=== PATIENT | female | born 1960 | race American Indian/Alaskan Native ===

== ENCOUNTER 2018-03-12 07:44 | Outpatient (CLI) | payer BC | END 2018-03-12 07:45 | disposition home or self-care (01) | LOC: VAS 07:44 | PROVIDERS: ATTEND Nurse Practitioner Family | DX: M79.661 Pain in right lower leg (principal); M79.89 Other specified soft tissue disorders ==

== ENCOUNTER 2018-03-26 07:08 | Outpatient (CLI) | payer BC ==
--- NOTE | 2018-03-26 13:45 | Mammography Report ---
BONE DEXA:03/26/18 07:08:00 CLINICAL: Postmenopausal. No comparison. TECHNIQUE: Two site bone DEXA performed on an Hologic scanner. FINDINGS: The average BMD of the right forearm is 0.616g/cm squared with a T-score of +1.0 and a Z-score of +2.1. The average BMD of the left forearm is 0.595g/cm squared with a T-score of +0.6 and a Z-score of +1.7. IMPRESSION: WHO classification: Normal with average fracture risk based on bilateral forearm measurements. RECOMMENDATION: Clinical correlation and routine screening. DEFINITIONS: BMD = Bone Mineral Density T-score = BMD related to mean peak bone mass of young adult (mean expressed in Standard Deviation) Z-score = Age matched BMD expressed in SD World Health Organization (WHO) Diagnostic Criteria Normal T-score > -1 SD Osteopenia T-score between -1 and -2.4 SD Osteoporosis T-score -2.5 SD or below NOTE: BMD is not the only risk factor for fracture. One should also consider factors such as the patient's age, risk of falling, previous osteoporotic fracture, family history of osteoporotic fractures, current smoker, and low body weight. Z-scores are not calculated if >80 years of age.
--- NOTE | 2018-03-26 15:59 | Mammography Report ---
BILATERAL DIGITAL SCREENING MAMMOGRAM with CAD: 03/26/18 07:08:00 CLINICAL: Routine screening. COMPARISON:07/19/16 and 10/06/10 FINDINGS: The breasts are heterogeneously dense, which may obscure small masses. A right outer asymmetry with architectural distortion requires additional imaging.No suspicious calcifications.The left breast is negative. IMPRESSION: Right outer asymmetry and architectural distortion requiring further workup. BI-RADS CATEGORY: 0 -- Additional Imaging Evaluation Required RECOMMENDATION: Recall for right mediolateral , exaggerated CC and spot magnification CC views and right breast ultrasound if needed. ACR BI-RADS MAMMOGRAPHIC CODES: 0 = Needs additional imaging evaluation; 1 = Negative; 2 = Benign; 3 = Probably benign; 4 = Suspicious; 5 = Malignant; 6 = Known biopsy-proven malignancy COMMENT: 1. Dense breast tissue, i.e., adenosis, fibrocystic changes, etc., may obscure an underlying neoplasm. 2. Approximately 10% of cancers are not detected with mammography. 3. A negative mammography report should not delay biopsy if a clinically suspicious mass is present. COMMENT: Patient follow-up letters are generated via our [employer] application.
== END 2018-03-26 07:09 | disposition home or self-care (01) ==
LOC: MAMMO 07:08
PROVIDERS: ATTEND Nurse Practitioner Family
DX: Z12.31 Encounter for screening mammogram for malignant neoplasm of breast (principal); F17.210 Nicotine dependence, cigarettes, uncomplicated; Z78.0 Asymptomatic menopausal state
CPT/HCPCS: 77067; 77080

== ENCOUNTER 2018-04-03 07:34 | Outpatient (CLI) | payer BC ==
--- NOTE | 2018-04-03 09:14 | Mammography Report ---
Spot compression magnification of asymmetric density outer right breast: Compared to 03/26/18. Findings: There is separation noted of the breast parenchyma in the region of asymmetric density. No mass is seen. No microcalcification. Impression: Benign findings. Annual followup with mammogram recommended. BI-RADS CATEGORY: 2 = Benign ACR BI-RADS MAMMOGRAPHIC CODES: 0 = Needs additional imaging evaluation; 1 = Negative; 2 = Benign; 3 = Probably benign; 4 = Suspicious; 5 = Malignant; 6 = Known biopsy-proven malignancy COMMENT: 1. Dense breast tissue, i.e., adenosis, fibrocystic changes, etc., may obscure an underlying neoplasm. 2. Approximately 10% of cancers are not detected with mammography. 3. A negative mammography report should not delay biopsy if a clinically suspicious mass is present. COMMENT: Patient follow-up letters are generated in [employer].
== END 2018-04-03 07:35 | disposition home or self-care (01) ==
LOC: MAMMO 07:34
PROVIDERS: ATTEND Nurse Practitioner Family
DX: N64.89 Other specified disorders of breast (principal)

== ENCOUNTER 2019-01-10 07:55 | Outpatient (CLI) | payer BC ==
--- NOTE | 2019-01-10 08:36 | XRay Report ---
BILATERAL KNEES STANDING, AP VIEW History: Bilateral primary osteoarthritis, knee pain. Findings: No comparison. Bone mineralization is within normal limits. No significant varus or valgus deformity. Within the right knee, there is moderate medial compartment joint space narrowing and marginal spurring. Mild tibial spine spurring. There is relative sparing of the lateral compartment. Within the left knee, there is mild medial compartment joint space narrowing and marginal spurring. Mild tibial spine spurring. There is relative sparing of the lateral compartment. Impression: Osteoarthritis as described, right knee greater than left knee.
== END 2019-01-10 07:56 | disposition home or self-care (01) ==
LOC: XRAY 07:55
PROVIDERS: ATTEND Orthopaedic Surgery
DX: M17.0 Bilateral primary osteoarthritis of knee (principal)
CPT/HCPCS: 73565

== ENCOUNTER 2019-03-20 07:27 | Outpatient (CLI) | payer BC ==
[2019-03-20 08:21] LABS: Alanine Aminotransferase 40 units/L (7-56); Albumin 3.6 g/dL (3.9-5); BUN/Creatinine Ratio 30; Blood Urea Nitrogen 15 mg/dL (7-17); Calcium 8.8 mg/dL (8.4-10.2); Hemolysis Index 56; LDL Cholesterol,Direct 114 mg/dL (50-130)
[2019-03-20 09:12] LABS: Chol/HDL Ratio 3.41 %; HDL Cholesterol 55 mg/dL (40-59)
== END 2019-03-20 07:28 | disposition home or self-care (01) ==
LOC: LAB 07:27
PROVIDERS: ATTEND Nurse Practitioner Family
DX: I10 Essential (primary) hypertension (principal)
CPT/HCPCS: 36415; 80053; 80061

== ENCOUNTER 2019-05-29 12:55 | Outpatient (CLI) | payer BC ==
--- NOTE | 2019-05-30 13:35 | Mammography Report ---
DIGITAL SCREENING MAMMOGRAM WITH CAD, 05/29/2019 INDICATION: Routine screening mammography. TECHNIQUE: Digital bilateral 2D mammography was obtained in the craniocaudal and mediolateral obliq ue projections. This examination was interpreted with the benefit of Computer-Aided Detection analysi s. COMPARISON: 03/26/2018. FINDINGS: Breast Density: There are scattered areas of fibroglandular density. There is no evidence of dominant mass, suspicious calcifications or architectural distortion in eithe r breast. IMPRESSION: BI-RADS Category 1: Negative. No mammographic evidence of malignancy. Recommend routine screening m ammography in one year. A "normal" or negative report should not discourage follow up or biopsy of a clinically significant f inding. A written summary of these findings will be mailed to the patient. The patient will be entered into a mammography reporting system which will generate a reminder letter for the patient's next appointmen t at the appropriate interval. The [employer] recommends yearly mammograms starting at age 40 and continuing as l jaleel as a woman is in good health. Breast MRI is recommended for women with an approximate 20-25% or greater lifetime risk of breast cancer, including women with a strong family history of breast or ova girish cancer or who have been treated for Hodgkin's disease. Signer Name: Alton Khan MD Signed: 05/30/2019 1:31 PM Workstation Name: [id number]
== END 2019-05-29 12:56 | disposition home or self-care (01) ==
LOC: MAMMO 12:55
PROVIDERS: ATTEND Internal Medicine
DX: Z12.31 Encounter for screening mammogram for malignant neoplasm of breast (principal)
CPT/HCPCS: 77067

== ENCOUNTER 2019-09-27 07:57 | Emergency (ER) | payer BC ==
[2019-09-27 08:16] VITALS: BP 155/92
--- NOTE | 2019-09-27 08:34 | Emergency Department Report ---
ED Back Pain/Injury HPI - General Chief Complaint: Medical Clearance Stated Complaint: RT SIDE PAIN EXTREME Time Seen by Provider: 09/27/19 08:24 Source: patient Limitations: No Limitations - History of Present Illness Initial Comments: Mrs. Peacock is a 59 yo with hx of HTN and "arthritis all over my body". She presents with 3 days of moderately severe right flank pain radiating to buttock and thigh. Hurts to twist, bend. Has a hard time putting on clothes. 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 Has been followed by Dr. Abdullahi orthopedic surgeon for arthritis. Has tried physical therapy in the past. Has most had right leg pain. Right back pain is new. No trauma. No fever. No weight loss. Mrs. Peacock tried to return to work today. She could not endure her shift due to the pain. 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) Associated Symptoms: denies other symptoms - Related Data Previous Rx's Medication Instructions Recorded Last Taken Type Cyclobenzaprine [Flexeril] 10 mg PO QHS 14 Days #14 tablet 09/27/19 Unknown Rx Allergies Allergy/AdvReac Type Severity Reaction Status Date / Time No Known Allergies Allergy Unverified 03/12/18 07:44 ED Review of Systems ROS: Stated complaint: RT SIDE PAIN EXTREME Other details as noted in HPI Comment: All other systems reviewed and negative Constitutional: denies: fever, malaise Respiratory: denies: cough Cardiovascular: denies: chest pain Gastrointestinal: denies: abdominal pain, nausea, vomiting ED Past Medical Hx - Past Medical History Previous Medical History?: Yes Hx Hypertension: Yes Hx Arthritis: Yes - Surgical History Past Surgical History?: No - Social History Smoking Status: Never Smoker - Medications Home Medications: Home Medications Medication Instructions Recorded Confirmed Last Taken Type Cyclobenzaprine [Flexeril] 10 mg PO QHS 14 Days #14 tablet 09/27/19 Unknown Rx ED Physical Exam - General Limitations: No Limitations General appearance: alert, in no apparent distress, other (able to transfer with obvious pain) - Head Head exam: Present: atraumatic, normocephalic - Eye Eye exam: Present: normal appearance - ENT ENT exam: Present: mucous membranes moist - Neck Neck exam: Present: normal inspection, full ROM - Respiratory Respiratory exam: Present: normal lung sounds bilaterally. Absent: respiratory distress, wheezes, rales - Cardiovascular Cardiovascular Exam: Present: regular rate, normal rhythm, normal heart sounds. Absent: systolic murmur, diastolic murmur, rubs, gallop - GI/Abdominal GI/Abdominal exam: Present: soft, normal bowel sounds. Absent: distended, tenderness, guarding, rebound - Extremities Exam Extremities exam: Present: normal inspection - Back Exam Back exam: Present: muscle spasm. Absent: paraspinal tenderness, vertebral tenderness, rash noted - Neurological Exam Neurological exam: Present: alert, oriented X3 - Psychiatric Psychiatric exam: Present: normal affect, normal mood - Skin Skin exam: Present: warm, dry, intact, normal color. Absent: rash ED Course Vital Signs 09/27/19 08:03 Temperature 98.5 F Pulse Rate 96 H Respiratory 18 Rate Blood Pressure 155/92 [Left] O2 Sat by Pulse 93 Oximetry ED Medical Decision Making - Medical Decision Making Mrs. Peacock presents with right lumbar sprain vs lumbar radiculopathy/back pain: given ketorolac IM in the ED Prescribed nightly flexeril. She has medication prescribed to her by Dr. Abdullahi. Strongly recommended returning to physical therapy She is neuorologically intact. No red flags such as trauma, fever, weight loss, advanced age. Suspect significant lumbar DDD with considering her occupation and age Critical care attestation.: If time is entered above; I have spent that time in minutes in the direct care of this critically ill patient, excluding procedure time. ED Disposition Clinical Impression: Lumbar strain Disposition: DC-01 TO HOME OR SELFCARE Is pt being admited?: No Does the pt Need Aspirin: No Condition: Stable Instructions: Acute Low Back Pain (ED) Prescriptions: Cyclobenzaprine [Flexeril] 10 mg PO QHS 14 Days #14 tablet Referrals: AGUSTIN ABDULLAHI MD [Staff Physician] - 2-3 Days Forms: Work/School Release Form(ED)
[2019-09-27] MEDS ORDERED: KETOROLAC 30 MG/1 ML INJ IM ONE (08:39)
== END 2019-09-27 08:58 | disposition home or self-care (01) ==
LOC: ED 07:57
DX: S39.012A Strain of muscle, fascia and tendon of lower back, initial encounter (principal); I10 Essential (primary) hypertension; M19.90 Unspecified osteoarthritis, unspecified site; X50.9XXA Other and unspecified overexertion or strenuous movements or postures, initial encounter; Y93.89 Activity, other specified; Y92.69 Other specified industrial and construction area as the place of occurrence of the external cause; Y99.8 Other external cause status
CPT/HCPCS: 96372; 99281; J1885

== ENCOUNTER 2019-11-20 08:54 | Outpatient (CLI) | payer BC ==
[2019-11-20 09:52] LABS: Alanine Aminotransferase 21 units/L (7-56); Albumin 4.1 g/dL (3.9-5); BUN/Creatinine Ratio 21; Blood Urea Nitrogen 17 mg/dL (7-17); Calcium 9.5 mg/dL (8.4-10.2); Hemolysis Index 6; LDL Cholesterol,Direct 132 mg/dL (50-130)
[2019-11-20 10:37] LABS: Chol/HDL Ratio 4.17 %; HDL Cholesterol 51 mg/dL (40-59)
[2019-11-24 12:09] LABS: Vitamin D, 25-OH, D2 <4 ng/mL
== END 2019-11-20 08:55 | disposition home or self-care (01) ==
LOC: VAS 08:54
PROVIDERS: ATTEND Orthopaedic Surgery
DX: Z00.00 Encounter for general adult medical examination without abnormal findings (principal); R73.09 Other abnormal glucose; Z13.220 Encounter for screening for lipoid disorders; Z13.29 Encounter for screening for other suspected endocrine disorder; Z13.21 Encounter for screening for nutritional disorder; M13.0 Polyarthritis, unspecified
CPT/HCPCS: 36415; 80053; 80061; 82306; 82607; 83036; 84443; 84550; 85652; 86038; 86431

== ENCOUNTER 2019-11-28 08:01 | Outpatient (CLI) | payer BC ==
--- NOTE | 2019-11-28 14:23 | Vascular Lab Report ---
DUPLEX DOPPLER LOWER EXTREMITY ARTERIAL, BILATERAL INDICATION: Bilateral lower extremity pain for several years when walking. TECHNIQUE: Arterial duplex examination of both lower extremities performed using B-mode, color flow and spectral Doppler assessment. FINDINGS: RIGHT: Common Femoral Artery: PSV 155 cm/sec. Triphasic waveform. Proximal SFA: PSV 131 cm/sec. Triphasic waveform. Mid SFA: PSV 102 cm/sec. Triphasic waveform. Distal SFA: PSV 102 cm/sec. Triphasic waveform. Popliteal artery: PSV 64 cm/sec. Biphasic waveform. Posterior tibial artery: PSV 102 cm/sec. Biphasic waveform. Anterior tibial artery: PSV 95 cm/s. Triphasic waveform. Dorsalis Pedis Artery: PSV 109 cm/sec. Biphasic waveform. LEFT: Common Femoral Artery: PSV 162 cm/sec. Triphasic waveform. Proximal SFA: PSV 122 cm/sec. Triphasic waveform. Mid SFA: PSV 95 cm/sec. Triphasic waveform. Distal SFA: PSV 68 cm/sec. Biphasic waveform. Popliteal artery: PSV 67 cm/sec. Biphasic waveform. Posterior tibial artery: PSV 88 cm/sec. Biphasic waveform. Anterior tibial artery: PSV 106 cm/s. Triphasic waveform. Dorsalis Pedis Artery: PSV 87 cm/sec. Triphasic waveform. IMPRESSION: Bilateral lower extremity arterial structures appear patent with multiphasic waveforms. Doppler Waveform: * Triphasic is normal. * Biphasic is abnormal if clear transition from triphasic signal along vascular tree. * Monophasic is abnormal. Signer Name: Clifford Eldridge Jr, MD Signed: 11/28/2019 2:18 PM Workstation Name: [id number]
== END 2019-11-28 08:02 | disposition home or self-care (01) ==
LOC: VAS 08:01
PROVIDERS: ATTEND Internal Medicine
DX: M79.606 Pain in leg, unspecified (principal)
CPT/HCPCS: 93925

== ENCOUNTER 2019-12-12 07:59 | Outpatient (CLI) | payer BC ==
[2019-12-12 08:23] LABS: Basophils # (Auto) 0.1 K/mm3 (0.0-0.1); Basophils % (Auto) 1.3 % (0.0-1.8); Eosinophils # (Auto) 0.2 K/mm3 (0.0-0.4); Eosinophils % (Auto) 4.3 % (0.0-4.3); Hematocrit 39.7 % (30.3-42.9); Hemoglobin 12.9 gm/dl (10.1-14.3); Lymphocytes # (Auto) 1.4 K/mm3 (1.2-5.4); Lymphocytes % (Auto) 29.3 % (13.4-35.0); Mean Corpuscular HGB Conc 32 % (30-34); Mean Corpuscular Volume 86 fl (79-97); Monocytes # (Auto) 0.4 K/mm3 (0.0-0.8); Monocytes % (Auto) 7.9 % (0.0-7.3); Platelet Count 191 K/mm3 (140-440); Red Blood Count 4.63 M/mm3 (3.65-5.03); Red Cell Distribution Width 16.9 % (13.2-15.2)
== END 2019-12-12 08:00 | disposition home or self-care (01) ==
LOC: LAB 07:59
PROVIDERS: ATTEND Internal Medicine
DX: Z00.00 Encounter for general adult medical examination without abnormal findings (principal)
CPT/HCPCS: 36415; 85025

== ENCOUNTER 2020-03-10 08:25 | Outpatient (CLI) | payer BC ==
[2020-03-10 09:38] LABS: Uric Acid 9.9 mg/dL (3.5-7.6)
[2020-03-10 09:58] LABS: Chol/HDL Ratio 3.55 %
== END 2020-03-10 08:26 | disposition home or self-care (01) ==
LOC: LAB 08:25
PROVIDERS: ATTEND Internal Medicine
DX: Z13.220 Encounter for screening for lipoid disorders (principal); M10.9 Gout, unspecified
CPT/HCPCS: 36415; 80061; 84550

== ENCOUNTER 2020-05-18 09:02 | Outpatient (CLI) | payer BC | END 2020-05-18 09:03 | disposition home or self-care (01) | LOC: LAB 09:02 | PROVIDERS: ATTEND Internal Medicine | DX: M10.9 Gout, unspecified (principal) | CPT/HCPCS: 36415; 84550 ==

== ENCOUNTER 2020-07-20 10:58 | Outpatient (CLI) | payer BC ==
--- NOTE | 2020-07-21 08:41 | Mammography Report ---
DIGITAL SCREENING MAMMOGRAM WITH CAD, 07/20/2020 INDICATION: Routine screening mammography. TECHNIQUE: Digital bilateral 2D mammography was obtained in the craniocaudal and mediolateral obliq ue projections. This examination was interpreted with the benefit of Computer-Aided Detection analysi s. COMPARISON: 05/29/2019, 04/03/2018, 06/19/2016 FINDINGS: Breast Density: There are scattered areas of fibroglandular density. There is no evidence of dominant mass, suspicious calcifications or architectural distortion in eithe r breast. IMPRESSION: Follow up recommendation: Routine yearly BI-RADS Category 1: Negative. A "normal" or negative report should not discourage follow up or biopsy of a clinically significant f inding. A written summary of these findings will be mailed to the patient. The patient will be entered into a mammography reporting system which will generate a reminder letter for the patient's next appointmen t at the appropriate interval. The [employer] recommends yearly mammograms starting at age 40 and continuing as l jaleel as a woman is in good health. Breast MRI is recommended for women with an approximate 20-25% or greater lifetime risk of breast cancer, including women with a strong family history of breast or ova girish cancer or who have been treated for Hodgkin's disease. Signer Name: Alison Amaya MD Signed: 07/21/2020 8:36 AM Workstation Name: [id number]
== END 2020-07-20 10:59 | disposition home or self-care (01) ==
LOC: MAMMO 10:58
PROVIDERS: ATTEND Internal Medicine
DX: Z12.31 Encounter for screening mammogram for malignant neoplasm of breast (principal)
CPT/HCPCS: 77067

== ENCOUNTER 2020-09-29 09:01 | Outpatient (CLI) | payer BC ==
[2020-09-29 11:05] LABS: Chol/HDL Ratio 3.49 %; Uric Acid 5.5 mg/dL (3.5-7.6)
== END 2020-09-29 09:02 | disposition home or self-care (01) ==
LOC: LAB 09:01
PROVIDERS: ATTEND Internal Medicine
DX: E78.5 Hyperlipidemia, unspecified (principal); M10.9 Gout, unspecified; R73.9 Hyperglycemia, unspecified
CPT/HCPCS: 36415; 80061; 83036; 84550

== ENCOUNTER 2020-11-17 11:16 | Outpatient (CLI) | payer BC ==
--- NOTE | 2020-11-17 15:03 | XRay Report ---
CHEST 2 VIEWS INDICATION / CLINICAL INFORMATION: SOB. COMPARISON: None available. FINDINGS: SUPPORT DEVICES: None. HEART / MEDIASTINUM: No significant abnormality. LUNGS / PLEURA: No significant pulmonary or pleural abnormality. No pneumothorax. ADDITIONAL FINDINGS: No significant additional findings. IMPRESSION: No significant abnormality Signer Name: Jorge Alberto Field MD FACR Signed: 11/17/2020 2:58 PM Workstation Name: [id number]
== END 2020-11-17 11:17 | disposition home or self-care (01) ==
LOC: XRAY 11:16
PROVIDERS: ATTEND Internal Medicine
DX: R06.02 Shortness of breath (principal)
CPT/HCPCS: 71046

== ENCOUNTER 2020-12-08 10:56 | Outpatient (CLI) | payer BC ==
--- NOTE | 2020-12-08 13:07 | Fluoroscopy Report ---
Single contrast upper GI HISTORY: FUNCTIONAL DYSPEPSIA. Preoperative planning Technique: Single contrast barium technique utilized to evaluate the esophagus, stomach, and duodena l C-loop. Findings: No mucosal irregularity, mass, mass effect, or critical stenosis. There were no abnormal tertiary contractions as seen with dysmotility. No gastroesophageal reflux. Normal anatomy. Impression: Unremarkable exam. Fluoroscopic time: 0.4 minutes Number of fluoroscopic images: 10 Signer Name: Giuliano Garcia MD Signed: 12/08/2020 1:03 PM Workstation Name: [id number]
== END 2020-12-08 10:57 | disposition home or self-care (01) ==
LOC: FLUORO 10:56
PROVIDERS: ATTEND Surgery
DX: K30 Functional dyspepsia (principal)
CPT/HCPCS: 74246

== ENCOUNTER 2021-01-02 11:00 | Outpatient (CLI) | payer BC | END 2021-01-03 11:00 | disposition home or self-care (01) | LOC: SLR 01-03 11:00 | PROVIDERS: ATTEND Surgery | DX: G47.30 Sleep apnea, unspecified (principal) | CPT/HCPCS: 95810 ==

== ENCOUNTER 2021-01-20 11:00 | Outpatient (CLI) | payer BC | END 2021-01-20 11:01 | disposition home or self-care (01) | LOC: SLR 11:00 | PROVIDERS: ATTEND Surgery | DX: G47.33 Obstructive sleep apnea (adult) (pediatric) (principal) | CPT/HCPCS: 95811 ==

== ENCOUNTER 2021-02-15 09:14 | Outpatient (CLI) | payer BC ==
[2021-02-15 10:40] LABS: Chol/HDL Ratio 3.36 %; Uric Acid 7.4 mg/dL (3.5-7.6)
== END 2021-02-15 09:15 | disposition home or self-care (01) ==
LOC: LAB 09:14
PROVIDERS: ATTEND Internal Medicine
DX: R73.03 Prediabetes (principal); E78.5 Hyperlipidemia, unspecified; M10.9 Gout, unspecified
CPT/HCPCS: 36415; 80061; 83036; 84550

== ENCOUNTER 2021-03-02 13:02 | Outpatient (CLI) | payer BC ==
[2021-03-02] MEDS ORDERED: ALBUTEROL 2.5 MG/3 ML NEBU IH ONE (15:30)
[2021-03-02] MEDS ORDERED: ALBUTEROL 2.5 MG/3 ML NEBU IH SCH (16:00)
--- NOTE | 2021-03-24 01:04 | Pulmonary Function Test ---
DATE OF VISIT: 03/02/2021 PULMONARY FUNCTION TEST SPIROMETRY: FVC 2.50, which is 85% of predicted and FEV1 is 2.10, which is 91% of the predicted. The FEV1/FVC ratio is 84 and the FEF 25-75% is 2.62 liters, which is 116% of the predicted. Post bronchodilators, there is a significant improvement in FVC. IMPRESSION: Normal spirometry. TID: [id number] RECEIPT: [id number] [facility] cc: Ellis Rendon MD
== END 2021-03-02 13:03 | disposition home or self-care (01) ==
LOC: PF 13:02
PROVIDERS: ATTEND Surgery
DX: R06.02 Shortness of breath (principal); E66.01 Morbid (severe) obesity due to excess calories
CPT/HCPCS: 94060; 94640

== ENCOUNTER 2021-05-31 05:58 | Day surgery (SDC) | payer BC ==
[~2021-05-31 05:58] MED LIST: SIMETHICONE 40 MG/0.6 ML ORAL DROP 30ML PO ONE
[2021-05-31] MEDS ORDERED: SODIUM CHLORIDE 0.9% 1000 ML 1,000 ML IV SCH (07:00)
[2021-05-31] MEDS ORDERED: MIDAZOLAM 2 MG/2 ML INJ ONE (07:41)
[2021-05-31] MEDS ORDERED: propofoL 200 MG/20 ML VIAL IV ONE (07:42)
[2021-05-31] MEDS ORDERED: KETAMINE/STERILE WATER 50 MG/ML SYRINGE ONE (07:42)
--- NOTE | 2021-05-31 08:26 | Anesthesia Day of Surgery ---
Anesthesia Day of Surgery - Day of Surgery Patient Examined: Yes Patient H&P Reviewed: Yes Patient is NPO: Yes
--- NOTE | 2021-05-31 08:26 | Anesthesia Consultation ---
Anesthesia Consult and Med Hx Date of service: 05/31/21 - Airway Anesthetic Teeth Evaluation: Dentures (upper) ROM Head & Neck: Adequate Mental/Hyoid Distance: Adequate Mallampati Class: Class III Intubation Access Assessment: Possibly Difficult - Pre-Operative Health Status ASA Pre-Surgery Classification: ASA3 Proposed Anesthetic Plan: MAC - Pulmonary Hx Smoking: No Hx Asthma: Yes Hx Respiratory Symptoms: No Hx Sleep Apnea: Yes - Cardiovascular System Hx Hypertension: Yes Hx Heart Attack/AMI: No - Central Nervous System CVA: No - Endocrine Hx Renal Disease: No Hx Liver Disease: No Hx Insulin Dependent Diabetes: No Hx Non-Insulin Dependent Diabetes: No Hx Thyroid Disease: No - Other Systems Hx Obesity: Yes (BMI 48)
--- NOTE | 2021-05-31 08:28 | Discharge Summary ---
Providers - Providers Date of Admission: 05/31/2021 Date of discharge: 05/31/21 Attending physician: CONRADO SPRINGER MD Primary care physician: JORGE WHITTAKER Hospitalization Reason for admission: pre-op planning egd Condition: Good Procedures: egd with bx Hospital course: Pt presented for a pre-op EGD as part of planning for up coming bariatric surgery. Procedure was uneventful and pt recovered well and was discharged to home. Disposition: 01 HOME / SELF CARE / HOMELESS Final Discharge Diagnosis (Prints w/discharge instructions): morbid obesity, gastritis, gerd Core Measure Documentation - Palliative Care Palliative Care/ Comfort Measures: Not Applicable - Core Measures Any of the following diagnoses?: none Exam - Physical Exam Narrative exam: unchanged from pre-op Plan Activity: no restrictions Diet: low carbohydrate Follow up with: JORGE WHITTAKER MD [Primary Care Provider] - 7 Days
--- NOTE | 2021-05-31 08:30 | Operative Report ---
Operative Report Operative Report: DATE: 05/31/2021 SURGERY: Upper endoscopy. SURGEON: Faith Lemus M.D. PROCEDURE: EGD with biopsy PRE OP DX: morbid obesity, GERD POST OP DX: morbid obesity, GERD, gastritis, duodenitis TYPE OF ANESTHESIA: MAC. ESTIMATED BLOOD LOSS: None. COMPLICATIONS: None. SPECIMENS REMOVED: antral biopsy FINDINGS: 1. Small hiatal hernia. 2. gastritis, duodenitis INDICATIONS:INDICATION FOR PROCEDURE: Patient is a 61-year-old female with a long history of morbid obesity. She is planned to have a weight loss procedure and is here for preoperative planning EGD. PROCEDURE DETAILS: After consent was reviewed, patient was taken back to the operating room where patient was placed in the left lateral decubitus position and a bite block was placed in the mouth. After a time-out was called, MAC anesthesia was initiated. I then passed the endoscope into her oropharynx, into her esophagus, visualized the entire esophagus, which was all within normal limits. Z-line was noted to about 40cm from incisors. I then visualized the stomach and the first portion of the duodenum and there were no abnormalities I could clearly visualize except for antral gastritis and duodenitis. A cold forceps biopsy of the antrum was taken and will be sent to pathology to evaluate for H.pylori. I then retroflexed the scope in the stomach and visualized the hiatus and I could see a small hiatal hernia. I then desufflated the stomach and removed the endoscope. Patient tolerated procedure well and was transferred to recovery room in good and stable condition.
[2021-05-31] MEDS: hydrALAZINE 20 MG/1 ML INJ IV PRN ×2 (08:54→09:37)
[2021-05-31] MEDS ORDERED: LIDOCAINE MPF (2%) 20 MG/1 ML VIAL 5 ML ONE (09:00)
--- NOTE | 2021-05-31 09:19 | Post Anesthesia Evaluation ---
- Post Anesthesia Evaluation Patient Participated: Yes Airway Patent: Yes Stable Respiratory Function: Yes Nausea/Vomiting: No Temp > 96.8F: Yes Pain Manageable: Yes Adequeate Hydration: Yes Anesthesia Complications: No
[2021-05-31 12:27] VITALS: BP 147/89
== END 2021-05-31 10:15 | disposition home or self-care (01) ==
LOC: GIO 05:58
PROVIDERS: ATTEND Surgery
DX: E66.01 Morbid (severe) obesity due to excess calories (principal); K21.9 Gastro-esophageal reflux disease without esophagitis; K44.9 Diaphragmatic hernia without obstruction or gangrene; K29.80 Duodenitis without bleeding; K31.89 Other diseases of stomach and duodenum; K29.50 Unspecified chronic gastritis without bleeding; I10 Essential (primary) hypertension; J45.909 Unspecified asthma, uncomplicated; G47.30 Sleep apnea, unspecified; M19.90 Unspecified osteoarthritis, unspecified site; Z79.899 Other long term (current) drug therapy; Z98.890 Other specified postprocedural states; Z68.42 Body mass index [BMI] 45.0-49.9, adult
CPT/HCPCS: 43239; 88305; 88342; J0360; J2250; J2704; J3490; J7030

== ENCOUNTER 2021-07-18 08:30 | Outpatient (CLI) | payer BC ==
--- NOTE | 2021-07-20 10:09 | Electrocardiograph Report ---
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
== END 2021-07-18 08:31 | disposition home or self-care (01) ==
LOC: CARD 08:30
PROVIDERS: ATTEND Surgery
DX: E66.01 Morbid (severe) obesity due to excess calories (principal)
CPT/HCPCS: 93005

== ENCOUNTER 2021-07-20 08:37 | Outpatient (CLI) | payer BC ==
[2021-07-20 09:29] LABS: Chol/HDL Ratio 3.67 %; Uric Acid 8.2 mg/dL (3.5-7.6)
== END 2021-07-20 08:38 | disposition home or self-care (01) ==
LOC: LAB 08:37
PROVIDERS: ATTEND Internal Medicine
DX: E78.5 Hyperlipidemia, unspecified (principal); M10.9 Gout, unspecified; R73.03 Prediabetes
CPT/HCPCS: 36415; 80061; 83036; 84550

== ENCOUNTER 2021-07-29 08:26 | Outpatient (CLI) | payer BC ==
--- NOTE | 2021-07-30 09:37 | Treadmill Report ---
DATE OF SERVICE: 07/29/2021 TREADMILL STRESS TEST ORDERING PHYSICIAN: Dr. Lemus. INDICATION: Preop for bariatric surgery. FINDINGS: Baseline heart rate was 76. Baseline blood pressure 150/92. Baseline EKG, sinus rhythm with RSR pattern in V1. The patient exercised for 6 minutes on Collins protocol, achieved a max heart rate of 132, which is 84% of max heart rate. Max blood pressure was 207/96. There were no EKG changes or arrhythmias suggestive of ischemia. SUMMARY: 1. Negative treadmill EKG, achieved 84% of max heart rate, sensitive, may be mildly compromised. 2. Mildly exaggerated blood pressure response to activity. 3. Fair exercise capacity. 4. No EKG changes or arrhythmias suggestive of ischemia. TID: [id number] RECEIPT: [id number] MIK/MEGAN
--- NOTE | 2021-08-04 11:51 | Treadmill Report ---
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
== END 2021-07-29 08:27 | disposition home or self-care (01) ==
LOC: CARD 08:26
PROVIDERS: ATTEND Surgery
DX: E66.01 Morbid (severe) obesity due to excess calories (principal)
CPT/HCPCS: 93017

== ENCOUNTER 2021-08-04 07:57 | Outpatient (CLI) | payer BC ==
[2021-08-04 08:21] LABS: Basophils # (Auto) 0.1 K/mm3 (0.0-0.1); Eosinophils # (Auto) 0.2 K/mm3 (0.0-0.4); Hematocrit 41.4 % (30.3-42.9); Hemoglobin 13.2 gm/dl (10.1-14.3); Lymphocytes # (Auto) 1.5 K/mm3 (1.2-5.4); Mean Corpuscular HGB Conc 32 % (30-34); Mean Corpuscular Volume 86 fl (79-97); Monocytes # (Auto) 0.4 K/mm3 (0.0-0.8); Monocytes % (Auto) 8.8 % (0.0-7.3); Platelet Count 174 K/mm3 (140-440); Red Blood Count 4.83 M/mm3 (3.65-5.03); Red Cell Distribution Width 17.7 % (13.2-15.2)
[2021-08-04 08:45] LABS: Alanine Aminotransferase 21 units/L (7-56); Albumin 3.8 g/dL (3.9-5); Blood Urea Nitrogen 15 mg/dL (7-17); Hemolysis Index 9
[2021-08-04 08:48] LABS: BUN/Creatinine Ratio 25
[2021-08-08 12:44] LABS: Vitamin D, 25-OH, D2 <4 ng/mL
== END 2021-08-04 07:58 | disposition home or self-care (01) ==
LOC: LAB 07:57
PROVIDERS: ATTEND Internal Medicine
DX: Z13.29 Encounter for screening for other suspected endocrine disorder (principal); Z00.00 Encounter for general adult medical examination without abnormal findings; E11.9 Type 2 diabetes mellitus without complications; E78.5 Hyperlipidemia, unspecified; E55.9 Vitamin D deficiency, unspecified
CPT/HCPCS: 36415; 80053; 82306; 84443; 85025

== ENCOUNTER 2021-08-17 07:56 | Outpatient (CLI) | payer BC ==
--- NOTE | 2021-08-17 14:51 | Mammography Report ---
DIGITAL SCREENING MAMMOGRAM WITH CAD, 08/17/2021 CLINICAL INFORMATION / INDICATION: Routine screening mammography. TECHNIQUE: Digital bilateral 2D mammography was obtained in the craniocaudal and mediolateral obliqu e projections. This examination was interpreted with the benefit of Computer-Aided Detection analysis . COMPARISON: 05/29/2019 FINDINGS: Breast Density: There are scattered areas of fibroglandular density. No dominant mass, suspicious calcifications, or architectural distortion in either breast. No interval change. IMPRESSION: No mammographic evidence of malignancy. Follow up recommendation: Routine yearly BI-RADS Category 1: Negative. A "normal" or negative report should not discourage follow up or biopsy of a clinically significant f inding. A written summary of these findings will be mailed to the patient. The patient will be entered into a mammography reporting system which will generate a reminder letter for the patient's next appointmen t at the appropriate interval. The [employer] recommends yearly mammograms starting at age 40 and continuing as l jaleel as a woman is in good health. Breast MRI is recommended for women with an approximate 20-25% or greater lifetime risk of breast cancer, including women with a strong family history of breast or ova girish cancer or who have been treated for Hodgkin's disease. Signer Name: Martha Jeffery MD Signed: 08/17/2021 2:47 PM Workstation Name: [id number]
== END 2021-08-17 07:57 | disposition home or self-care (01) ==
LOC: MAMMO 07:56
PROVIDERS: ATTEND Internal Medicine
DX: Z12.31 Encounter for screening mammogram for malignant neoplasm of breast (principal)
CPT/HCPCS: 77067

== ENCOUNTER 2021-11-15 08:29 | Outpatient (CLI) | payer BC ==
[2021-11-15 09:18] LABS: Basophils % (Auto) 0.7 % (0.0-1.8); Eosinophils # (Auto) 0.1 K/mm3 (0.0-0.4); Eosinophils % (Auto) 2.1 % (0.0-4.3); Hematocrit 42.9 % (30.3-42.9); Hemoglobin 13.6 gm/dl (10.1-14.3); Lymphocytes # (Auto) 1.2 K/mm3 (1.2-5.4); Lymphocytes % (Auto) 22.1 % (13.4-35.0); Mean Corpuscular HGB Conc 32 % (30-34); Mean Corpuscular Volume 86 fl (79-97); Monocytes # (Auto) 0.4 K/mm3 (0.0-0.8); Monocytes % (Auto) 7.1 % (0.0-7.3); Platelet Count 188 K/mm3 (140-440); Red Blood Count 4.99 M/mm3 (3.65-5.03); Red Cell Distribution Width 19.2 % (13.2-15.2)
[2021-11-15 09:22] LABS: % Iron Saturation 36.76 %; Alanine Aminotransferase 28 units/L (7-56); Blood Urea Nitrogen 12 mg/dL (7-17); Calcium 9.5 mg/dL (8.4-10.2); Chol/HDL Ratio 2.91 %; HDL Cholesterol 59 mg/dL (40-59); Hemolysis Index 6; Iron 93 ug/dL (37-170); LDL Cholesterol,Direct 97 mg/dL (50-130); Total Iron Binding Capacity 253 mcg/dL (250-450)
[2021-11-15 09:38] LABS: BUN/Creatinine Ratio 17
== END 2021-11-15 08:30 | disposition home or self-care (01) ==
LOC: LAB 08:29
PROVIDERS: ATTEND Surgery
DX: Z13.21 Encounter for screening for nutritional disorder (principal); Z13.29 Encounter for screening for other suspected endocrine disorder; K30 Functional dyspepsia; K90.9 Intestinal malabsorption, unspecified; E55.9 Vitamin D deficiency, unspecified; E11.9 Type 2 diabetes mellitus without complications; E66.01 Morbid (severe) obesity due to excess calories; Z98.84 Bariatric surgery status
CPT/HCPCS: 36415; 80053; 80061; 82306; 82607; 82728; 83036; 83550; 83970; 84425; 84443; 85025

== ENCOUNTER 2022-02-28 08:00 | Outpatient (CLI) | payer BC ==
[2022-03-03 12:15] LABS: Vitamin D, 25-OH, D2 <4 ng/mL
== END 2022-02-28 08:01 | disposition home or self-care (01) ==
LOC: LAB 08:00
PROVIDERS: ATTEND Internal Medicine
DX: Z01.812 Encounter for preprocedural laboratory examination (principal); E66.01 Morbid (severe) obesity due to excess calories; K30 Functional dyspepsia; E55.9 Vitamin D deficiency, unspecified
CPT/HCPCS: 36415; 82306; 84425

== ENCOUNTER 2022-05-31 08:03 | Outpatient (CLI) | payer BC ==
[2022-05-31 09:06] LABS: Eosinophils % (Auto) 2.2 % (0.0-4.3); Hematocrit 41.8 % (30.3-42.9); Hemoglobin 13.3 gm/dl (10.1-14.3); Lymphocytes % (Auto) 29.4 % (13.4-35.0); Mean Corpuscular HGB Conc 32 % (30-34); Mean Corpuscular Volume 92 fl (79-97); Mean Platelet Volume 10.7 fl (6-12); Monocytes % (Auto) 7.5 % (0.0-7.3); Platelet Count 170 K/mm3 (140-440); Red Blood Count 4.55 M/mm3 (3.65-5.03); Red Cell Distribution Width 16.3 % (13.2-15.2)
[2022-05-31 09:07] LABS: Basophils # (Auto) 0.1 K/mm3 (0.0-0.1); Basophils % (Auto) 1.2 % (0.0-1.8); Eosinophils # (Auto) 0.1 K/mm3 (0.0-0.4); Lymphocytes # (Auto) 1.3 K/mm3 (1.2-5.4); Monocytes # (Auto) 0.3 K/mm3 (0.0-0.8)
[2022-05-31 09:19] LABS: Creatinine,Urine 152.6 mg/dL (0.1-20.0); Microalbumin/Creatinine Ratio 7.8 ug/mg
[2022-05-31 09:48] LABS: Alanine Aminotransferase 24 units/L (7-56); BUN/Creatinine Ratio 23; Blood Urea Nitrogen 14 mg/dL (7-17); Calcium 9.3 mg/dL (8.4-10.2)
[2022-05-31 09:49] LABS: Chol/HDL Ratio 2.84 %; HDL Cholesterol 71 mg/dL (40-59); Hemolysis Index 1; LDL Cholesterol,Direct 107 mg/dL (50-130)
[2022-06-03 15:40] LABS: Vitamin D, 25-OH, D2 <4 ng/mL
== END 2022-05-31 08:04 | disposition home or self-care (01) ==
LOC: LAB 08:03
PROVIDERS: ATTEND Internal Medicine
DX: Z00.00 Encounter for general adult medical examination without abnormal findings (principal); E11.9 Type 2 diabetes mellitus without complications; I10 Essential (primary) hypertension; E78.5 Hyperlipidemia, unspecified; R53.83 Other fatigue; E55.9 Vitamin D deficiency, unspecified
CPT/HCPCS: 36415; 80053; 80061; 82043; 82306; 83036; 85025

== ENCOUNTER 2022-07-10 09:03 | Outpatient (CLI) | payer BC ==
--- NOTE | 2022-07-10 10:19 | XRay Report ---
. RIGHT FOOT 3 VIEW(S) INDICATION / CLINICAL INFORMATION: M25.571 PAIN IN RIGHT FOOT COMPARISON: None available. FINDINGS: BONES / JOINT(S): No acute fracture or subluxation. No significant arthritis. SOFT TISSUES: No significant abnormality. ADDITIONAL FINDINGS: Prominent plantar calcaneal enthesophyte. IMPRESSION: 1. No acute findings. 2. Plantar calcaneal enthesopathy Signer Name: Bob Malik MD Signed: 07/10/2022 10:15 AM Workstation Name: [email or web address]
--- NOTE | 2022-07-10 10:19 | XRay Report ---
. RIGHT ANKLE 2 VIEW(S) INDICATION / CLINICAL INFORMATION: M25.571 PAIN IN RIGHT ANKLE COMPARISON: None available. FINDINGS: BONES / JOINT(S): No acute fracture or subluxation. Mild degenerative arthrosis tibiotalar joint. Mil d polyarticular arthrosis right midfoot. Prominent plantar calcaneal enthesophyte. SOFT TISSUES: Moderate medial and lateral ankle soft tissue swelling. ADDITIONAL FINDINGS: None. IMPRESSION: 1. Polyarticular arthrosis. 2. Old medial malleolus avulsion fracture. 3. Moderate soft tissue swelling Signer Name: Bob Malik MD Signed: 07/10/2022 10:15 AM Workstation Name: [id number]
== END 2022-07-10 09:04 | disposition home or self-care (01) ==
LOC: XRAY 09:03
PROVIDERS: ATTEND Orthopaedic Surgery
DX: M77.31 Calcaneal spur, right foot (principal); M79.89 Other specified soft tissue disorders; M19.071 Primary osteoarthritis, right ankle and foot